=== PATIENT | male | born 1975 | race Caucasian/White ===

== ENCOUNTER 2018-07-10 05:56 | Inpatient (IN) | payer SELFPAY ==
[2018-07-10] MEDS ORDERED: Sodium Chloride 0.9% 10 ML Syringe FLUSH PRN (06:14)
[2018-07-10] MEDS ORDERED: Ondansetron 4 MG/2 ML SDV IVPUSH ONE (06:14)
[2018-07-10] MEDS ORDERED: LORazepam 2 MG/ML SDV IVPUSH ONE ×2 (06:14→07:00)
[2018-07-10] MEDS ORDERED: Sodium Chloride 0.9% 1,000 ML IV ONE ×5 (06:14→13:30)
[2018-07-10] MEDS ORDERED: HYDROmorphone 1 MG/ML Syringe IVPUSH ONE (06:14)
[2018-07-10] MEDS ORDERED: Sodium Chloride 0.9% 2.5 ML Syringe FLUSH PRN (06:14)
[2018-07-10] MEDS ORDERED: MVI, Adult with Vitamin K 10 ML, Thiamine 100 MG, Folic Acid 1 MG in Sodium Chloride 0.... IV ONE ×4 (06:15)
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
[2018-07-10] MEDS ORDERED: Pantoprazole 40 MG Vial IVPUSH ONE (06:16)
[2018-07-10] MEDS ORDERED: Sodium Chloride 0.9% 20 ML ONE (06:21)
[2018-07-10 06:35] LABS: CHLORIDE,CL 97 mmol/L (98-107); SODIUM,NA 136 mmol/L (136-148)
[2018-07-10] MEDS ORDERED: Iopamidol 755 Mg/ML 100 ML Bottle IVPUSH ONE (06:38)
--- NOTE | 2018-07-10 07:43 | CT ---
INDICATION: Abdominal pain. TECHNIQUE: CT scan of the abdomen and pelvis with 100 cc of Isovue-370 given intravenously. FINDINGS: The lung bases show trace dependent atelectasis. Diffuse fatty infiltration of the liver. More significant focal fatty infiltration in segment 5 and focal fatty sparing in segment 4. No other focal abnormalities identified in the visualized portions of the liver, spleen, left adrenal gland, and kidneys. No hydronephrosis. Minimal edema adjacent to the head of the pancreas. 2.8 cm peripherally calcified lesion abutting the distal portion of the body of the pancreas and 2.6 cm peripherally calcified lesion abutting the proximal portion of the body of the pancreas. The pancreas is otherwise unremarkable. 2.9 cm right adrenal nodule. The GI tract is incompletely distended but shows no gross abnormalities. The stomach and GE junction are not well assessed. Normal appendix. No retroperitoneal, pelvic sidewall, or mesenteric adenopathy. IMPRESSION: 1. Minimal edema adjacent to the head of the pancreas may represent acute pancreatitis. 2. Two peripherally calcified lesions abutting the body of the pancreas may represent old pancreatic pseudocysts. 3. 2.9 cm right adrenal nodule. Recommend adrenal CT scan on a routine basis. Dictated by Chris Armstrong MD @ 07/10/2018 7:40:52 AM Dictated by: Chris Armstrong MD @ 07/10/2018 07:41:01 (Electronically Signed)
[2018-07-10] MEDS ORDERED: Folic Acid 50 MG/10 ML MDV SUBCUT SCH ×2 (09:00→12:00)
[2018-07-10] MEDS ORDERED: Thiamine 200 MG/2 ML MDV IV SCH ×2 (11:15→12:00)
--- NOTE | 2018-07-10 11:43 | PCM.HP ---
H&P History of Present Illness - General Date of Service: 07/10/18 Admit Problem/Dx: Admission Diagnosis/Problem Admission Diagnosis/Problem Alcohol withdrawal syndrome - History of Present Illness Initial Comments - Free Text/Narative: Holland Kowalski is a 42 y/o male with history of pancreatitis and polysubstance abuse who presented to the ED complaining of abdominal pain mostly in the epigastric region. Rated 10/10 and down to 6/10 with pain medication. Worse with eating and direct pressure to abdomen. Endorsing poor oral intake due to nausea and abdominal pain. Patient has been drinking daily 3-6 beers daily. States he took methamphetamine about 2-3 days ago. Denies any IV drug use. No diarrhea or dysuria. Denies any alcohol withdrawal seizures. Last alcohol intake was yesterday. epigastric Pain Score (Numeric/FACES): 8 - Related Data Allergies/Adverse Reactions: Allergies Allergy/AdvReac Type Severity Reaction Status Date / Time No Known Allergies Allergy Verified 07/10/18 06:00 Home Medications: Home Meds . [No Known Home Meds] 07/10/18 [History] Past Medical History HEENT History: Reports: Impaired Vision, Other (See Below) Other HEENT History: wears glasses. [place] at [place] ear Gastrointestinal History: Reports: Pancreatitis - Infectious Disease History Infectious Disease History: Reports: Chicken Pox - Past Surgical History Musculoskeletal Surgical History: Reports: Shoulder Surgery, Other (See Below) Other Musculoskeletal Surgeries/Procedures:: pins @ Rt shoulder Dermatological Surgical History: Reports: Skin Graft Social & Family History - Family History Family Medical History: Noncontributory - Tobacco Use Smoking Status *Q: Current Every Day Smoker Years of Tobacco use: 20 Packs/Tins Daily: 7 Second Hand Smoke Exposure: Yes - Caffeine Use Caffeine Use: Reports: Coffee, Soda, Tea - Alcohol Use Days Per Week of Alcohol Use: 3 Number of Drinks Per Day: 12 Total Drinks Per Week: 36 Date of Last Drink: 07/09/18 - Recreational Drug Use Recreational Drug Use: Yes Drug Use in Last 12 Months: Yes Recreational Drug Type: Reports: Marijuana/Hashish, Methamphetamine Recreational Drug Use Frequency: Socially H&P Review of Systems - Review of Systems: Review Of Systems: ROS reveals no pertinent complaints other than HPI. Exam - Exam Exam: See Below - Vital Signs Vital Signs: Last Vital Signs Temp 37.0 C 07/10/18 08:10 Pulse 116 H 07/10/18 08:10 Resp 18 07/10/18 08:10 BP 164/97 H 07/10/18 08:10 Pulse Ox 98 07/10/18 08:10 Weight: 109.344 kg - Exam General: Alert, Oriented, Cooperative, Mild Distress HEENT: Conjunctiva Clear, Pupils Equal, Pupils Reactive Lungs: No: Crackles, Wheezing Cardiovascular: Regular Rhythm, Tachycardia. No: Systolic Murmur, Diastolic Murmur GI/Abdominal Exam: Soft, No Distention. No: Rebound Back Exam: Normal Inspection Extremities: Normal Inspection, No Pedal Edema Skin: Warm, Dry Neuro Extensive - Mental Status: Alert, Oriented x3 - Patient Data Lab Results Last 24 hrs: Laboratory Results - last 24 hr 07/10/18 07/10/18 07/10/18 Range/Units 06:12 06:12 06:12 WBC 10.10 (4.0-11.0) K/uL RBC 5.25 (4.50-5.90) M/uL Hgb 16.5 (13.0-17.0) g/dL Hct 47.9 (38.0-50.0) % MCV 91.2 (80.0-98.0) fL MCH 31.4 (27.0-32.0) pg MCHC 34.4 (31.0-37.0) g/dL RDW Std Deviation 42.8 (28.0-62.0) fl RDW Coeff of Barbara 13 (11.0-15.0) % Plt Count 127 L (150-400) K/uL MPV 9.70 (7.40-12.00) fL Neut % (Auto) 75.1 (48.0-80.0) % Lymph % (Auto) 14.9 L (16.0-40.0) % Garza % (Auto) 9.0 (0.0-15.0) % Eos % (Auto) 0.7 (0.0-7.0) % Baso % (Auto) 0.3 (0.0-1.5) % Neut # (Auto) 7.6 H (1.4-5.7) K/uL Lymph # (Auto) 1.5 (0.6-2.4) K/uL Garza # (Auto) 0.9 H (0.0-0.8) K/uL Eos # (Auto) 0.1 (0.0-0.7) K/uL Baso # (Auto) 0.0 (0.0-0.1) K/uL Nucleated RBC % 0.0 /100WBC Nucleated RBCs # 0 K/uL INR 1.10 Sodium 136 (136-148) mmol/L Potassium 3.3 L (3.5-5.1) mmol/L Chloride 97 L (98-107) mmol/L Carbon Dioxide 24.3 (21.0-32.0) mmol/L BUN 16 (7.0-18.0) mg/dL Creatinine 0.9 (0.8-1.3) mg/dL Est Cr Clr Drug Dosing 130.40 mL/min Estimated GFR (MDRD) > 60.0 ml/min Glucose 129 H (74-106) mg/dL Calcium 9.8 (8.5-10.1) mg/dL Magnesium 1.6 L (1.8-2.4) mg/dL Total Bilirubin 2.3 H (0.2-1.0) mg/dL AST 73 H (15-37) IU/L ALT 68 H (14-63) IU/L Alkaline Phosphatase 87 (46-116) U/L Total Protein 8.3 H (6.4-8.2) g/dL Albumin 4.6 (3.4-5.0) g/dL Globulin 3.7 (2.6-4.0) g/dL Albumin/Globulin Ratio 1.2 (0.9-1.6) Triglycerides (0-200) mg/dL Cholesterol (50-200) mg/dL LDL Cholesterol, Calc (60-180) mg/dL VLDL Cholesterol (5-55) mg/dL HDL Cholesterol (40-60) mg/dL Cholesterol/HDL Ratio (3.3-6.0) Amylase 69 (25-115) U/L Lipase 284 (73-393) U/L Ethyl Alcohol <3 mg/dL H. pylori IgG Antibody (NEG) 07/10/18 07/10/18 Range/Units 06:12 06:12 WBC (4.0-11.0) K/uL RBC (4.50-5.90) M/uL Hgb (13.0-17.0) g/dL Hct (38.0-50.0) % MCV (80.0-98.0) fL MCH (27.0-32.0) pg MCHC (31.0-37.0) g/dL RDW Std Deviation (28.0-62.0) fl RDW Coeff of Barbara (11.0-15.0) % Plt Count (150-400) K/uL MPV (7.40-12.00) fL Neut % (Auto) (48.0-80.0) % Lymph % (Auto) (16.0-40.0) % Garza % (Auto) (0.0-15.0) % Eos % (Auto) (0.0-7.0) % Baso % (Auto) (0.0-1.5) % Neut # (Auto) (1.4-5.7) K/uL Lymph # (Auto) (0.6-2.4) K/uL Garza # (Auto) (0.0-0.8) K/uL Eos # (Auto) (0.0-0.7) K/uL Baso # (Auto) (0.0-0.1) K/uL Nucleated RBC % /100WBC Nucleated RBCs # K/uL INR Sodium (136-148) mmol/L Potassium (3.5-5.1) mmol/L Chloride (98-107) mmol/L Carbon Dioxide (21.0-32.0) mmol/L BUN (7.0-18.0) mg/dL Creatinine (0.8-1.3) mg/dL Est Cr Clr Drug Dosing mL/min Estimated GFR (MDRD) ml/min Glucose (74-106) mg/dL Calcium (8.5-10.1) mg/dL Magnesium (1.8-2.4) mg/dL Total Bilirubin (0.2-1.0) mg/dL AST (15-37) IU/L ALT (14-63) IU/L Alkaline Phosphatase (46-116) U/L Total Protein (6.4-8.2) g/dL Albumin (3.4-5.0) g/dL Globulin (2.6-4.0) g/dL Albumin/Globulin Ratio (0.9-1.6) Triglycerides 82 (0-200) mg/dL Cholesterol 180 (50-200) mg/dL LDL Cholesterol, Calc 89 (60-180) mg/dL VLDL Cholesterol 16 (5-55) mg/dL HDL Cholesterol 75 H (40-60) mg/dL Cholesterol/HDL Ratio 2.4 L (3.3-6.0) Amylase (25-115) U/L Lipase (73-393) U/L Ethyl Alcohol mg/dL H. pylori IgG Antibody NEGATIVE (NEG) Result Diagrams: 07/10/18 06:12 07/10/18 06:12 Problem List Initiated/Reviewed/Updated: Yes Orders Last 24hrs: Active Orders 24 hr Category Date Time Status Patient Status [ADT] Stat ADT 07/10/18 07:00 Active Antiembolic Devices [RC] PER UNIT ROUTINE Care 07/10/18 11:16 Active EKG Documentation Completion [RC] STAT Care 07/10/18 06:13 Active Oxygen Therapy, ED [RC] ASDIRECTED Care 07/10/18 06:13 Active Pulse Oximetry [RC] ASDIRECTED Care 07/10/18 06:13 Active Telemetry Monitoring [Cardiac Monitoring] [RC] . Care 07/10/18 07:44 Active DIRECTED Abdomen Ltd [US] Routine Exams 07/10/18 11:11 Ordered CBC WITH AUTO DIFF [HEME] AM Lab 07/11/18 05:11 Ordered COMPREHENSIVE METABOLIC PN,CMP [CHEM] AM Lab 07/11/18 05:11 Ordered DRUG SCREEN, URINE [URCHEM] Stat Lab 07/10/18 06:39 Ordered UA RFX ANABEL AND CULT IF INDIC [URIN] Stat Lab 07/10/18 06:13 Ordered Folic Acid Med 07/10/18 09:00 Active 1 mg SUBCUT DAILY HYDROmorphone [Dilaudid] Med 07/10/18 11:10 Active 1 mg IVPUSH Q3H PRN LORazepam [Ativan] Med 07/10/18 11:06 Active See Protocol IVPUSH Q4H PRN MVI, Adult with Vitamin K [Infuvite Adult] 10 ml Med 07/10/18 06:15 Active Thiamine [Vitamin B-1] 100 mg Folic Acid 1 mg Sodium Chloride 0.9% [Normal Saline] 1,000 ml IV ONETIME Pantoprazole [ProTONIX IV] Med 07/11/18 09:00 Active 40 mg IV Q24H Sodium Chloride 0.9% [Normal Saline] 1,000 ml Med 07/10/18 11:06 Active IV .Bolus Sodium Chloride 0.9% [Normal Saline] 1,000 ml Med 07/10/18 11:10 Active IV .Bolus Sodium Chloride 0.9% [Normal Saline] 1,000 ml Med 07/10/18 11:15 Active IV ASDIRECTED Sodium Chloride 0.9% [Saline Flush] Med 07/10/18 06:14 Active 10 ml FLUSH ASDIRECTED PRN Sodium Chloride 0.9% [Saline Flush] Med 07/10/18 06:14 Active 2.5 ml FLUSH ASDIRECTED PRN Thiamine [Vitamin B-1] Med 07/10/18 11:15 Active 100 mg IV DAILY SCD [Sequential Compression Device] [OM.PC] Routine Oth 07/10/18 11:16 Ordered Saline Lock Insert [OM.PC] Stat Oth 07/10/18 06:13 Ordered Medication Orders Folic Acid (Folic Acid) 1 mg SUBCUT DAILY AMAN Hydromorphone HCl (Dilaudid) 1 mg IVPUSH Q3H PRN PRN Reason: Pain Multivitamins/Minerals 10 ml/Thiamine HCl 100 mg/ Folic Acid 1 mg/ Sodium Chloride 1,011.2 mls @ 150 mls/hr IV ONETIME ONE Stop: 07/10/18 12:59 Last Admin: 07/10/18 06:35 Dose: 150 mls/hr Sodium Chloride (Normal Saline) 1,000 mls @ 999 mls/hr IV .Bolus ONE Stop: 07/10/18 12:06 Sodium Chloride (Normal Saline) 1,000 mls @ 999 mls/hr IV .Bolus ONE Stop: 07/10/18 12:10 Sodium Chloride (Normal Saline) 1,000 mls @ 200 mls/hr IV ASDIRECTED AMAN Lorazepam (Ativan) 0 mg IVPUSH Q4H PRN; Protocol PRN Reason: aggitation Pantoprazole Sodium (Protonix Iv) 40 mg IV Q24H AMAN Sodium Chloride (Saline Flush) 10 ml FLUSH ASDIRECTED PRN PRN Reason: Keep Vein Open Sodium Chloride (Saline Flush) 2.5 ml FLUSH ASDIRECTED PRN PRN Reason: Keep Vein Open Thiamine HCl (Vitamin B-1) 100 mg IV DAILY AMAN Assessment/Plan Comment:: A: 1. Acute pancreatitis 2. Alcohol withdrawal 3. Polysubstance abuse 4. Hypomagnesemia 5. Hypokalemia 6. Hypertension 7. Hyperbilirubinemia P: 1. Acute pancreatitis. Will be NPO for bowel rest. Continue IV fluids. Zofran for nausea. Dilaudid PRN for abdominal pain. 2. Alcohol withdrawal- [place] protocol, lorazepam PRN. 3. Hypomagnesemia- replace with MgS 2 g IV once. Recheck tomorrow. 4. Hypokalemia- monitor for now. Recheck tomorrow. 5. Hypertension- monitor for now. If not improving, will start BP med. 6. Hyperbilirubinemia- continue to monitor. Likely 2/2 nausea, vomiting. f/u RUQ ultrasound. dispo: 1-2 days
[2018-07-10] MEDS: HYDROmorphone 1 MG/ML Syringe IVPUSH PRN ×3 (12:27→21:54)
[2018-07-10] MEDS ORDERED: Magnesium Sulfate/Water 2 GM in Premix Bag 1 BAG IV ONE (13:12)
--- NOTE | 2018-07-10 13:49 | US ---
INDICATION: Pancreatitis TECHNIQUE: Ultrasound abdomen limited. Sonographic images of the right upper quadrant were obtained using watts-scale and color Doppler images. COMPARISON: CT of the abdomen and pelvis 07/10/2018 FINDINGS: Liver: Diffusely echogenic consistent with fatty infiltrate. No masses. No intrahepatic biliary dilatation. Gallbladder: No stones or sludge. Normal wall thickness. No pericholecystic fluid. Common bile duct: 5 mm. Pancreas: Not well visualized due to overlying bowel gas. See report of CT the same day. Right kidney: 10.5 cm. Normal echotexture and cortex. No masses, stones, or hydronephrosis. IMPRESSION: Echogenic liver consistent with fatty infiltration. No gallstones or sludge Pancreas not well visualized Dictated by Rico Valencia MD @ Jul 10 2018 1:43PM Signed by Dr. Rico Valencia @ Jul 10 2018 1:47PM
[2018-07-10] MEDS: Sodium Chloride 0.9% 1,000 ML IV SCH ×2 (15:41→23:10)
[2018-07-10] MEDS ORDERED: Nicotine 14 MG/24 Hr Patch TRDERM SCH (15:45)
[2018-07-10] MEDS: LORazepam 2 MG/ML SDV IVPUSH PRN ×2 (16:32→23:11)
[2018-07-11] MEDS: LORazepam 2 MG/ML SDV IVPUSH PRN ×3 (00:19→05:34)
[2018-07-11] MEDS: Sodium Chloride 0.9% 1,000 ML IV SCH (05:26)
[2018-07-11 06:13] LABS: CHLORIDE,CL 102 mmol/L (98-107); SODIUM,NA 136 mmol/L (136-148)
[2018-07-11] MEDS ORDERED: Pantoprazole 40 MG Vial IV SCH (09:00)
[2018-07-11] MEDS ORDERED: Pantoprazole 40 MG in Sodium Chloride 0.9% 100 ML IVPUSH SCH (09:00)
== END 2018-07-11 06:15 | disposition left against medical advice (07) | DRG 439 ==
LOC: MW.ED 05:56 → MW.MS 07:00
PROVIDERS: ADMIT Internal Medicine; ATTEND Internal Medicine
PROC: HZ2ZZZZ Detoxification Services for Substance Abuse Treatment (ICD-10-PCS; principal; 2018-07-10)
DX: K85.90 Acute pancreatitis without necrosis or infection, unspecified (principal); F10.230 Alcohol dependence with withdrawal, uncomplicated; H54.7 Unspecified visual loss; F17.210 Nicotine dependence, cigarettes, uncomplicated; E83.42 Hypomagnesemia; I10 Essential (primary) hypertension; E87.6 Hypokalemia; E80.6 Other disorders of bilirubin metabolism; F19.10 Other psychoactive substance abuse, uncomplicated
CPT/HCPCS: 36415; 74177; 74177-26; 76705; 76705-26; 80053; 80061; 80305-QW; 81001; 82150; 83690; 83735; 85025; 85610; 86677; 93005; 96365; 96375; 96376; 99285-25; A4217; A9270-GY; C9113; G0480; J1170; J2060; J2405; J3411; J3475; J7040; Q9967

== ENCOUNTER 2018-07-12 08:22 | Observation (INO) | payer OTHER ==
[2018-07-12] MEDS ORDERED: Pantoprazole 40 MG Vial IVPUSH ONE (08:28)
[2018-07-12] MEDS ORDERED: Ondansetron 4 MG/2 ML SDV IVPUSH ONE (08:28)
[2018-07-12] MEDS ORDERED: Sodium Chloride 0.9% 1,000 ML IV ONE (08:28)
--- NOTE | 2018-07-12 08:45 | EDM.PDOC ---
ED HPI GENERAL MEDICAL PROBLEM - General Stated Complaint: stomach pain Time Seen by Provider: 07/12/18 08:44 Source of Information: Reports: Patient - History of Present Illness INITIAL COMMENTS - FREE TEXT/NARRATIVE: HISTORY AND PHYSICAL: History of present illness: [Patient with history of pancreatitis left the hospital on his own yesterday presents again today with 8 out of 10 epigastric pain no fever vomiting chills sweats Somewhat anxious 72 hours FROM his last drink ] Review of systems: As per history of present illness and below otherwise all systems reviewed and negative. Past medical history: As per history of present illness and as reviewed below otherwise noncontributory. Surgical history: As per history of present illness and as reviewed below otherwise noncontributory. Social history: No reported history of drug or alcohol abuse. Family history: As per history of present illness and as reviewed below otherwise noncontributory. Physical exam: HEENT: Atraumatic, normocephalic, pupils reactive, negative for conjunctival pallor or scleral icterus, mucous membranes moist, throat clear, neck supple, nontender, trachea midline. Lungs: Clear to auscultation, breath sounds equal bilaterally, chest nontender. Heart: S1S2, regular, negative for clicks, rubs, or JVD. Abdomen: Soft, nondistended, nontender. Negative for masses or hepatosplenomegaly. Negative for costovertebral tenderness. Pelvis: Stable nontender. Genitourinary: Deferred. Rectal: Deferred. Extremities: Atraumatic, negative for cords or calf pain. Neurovascular unremarkable. Neuro: Awake, alert, oriented. Cranial nerves II through XII unremarkable. Cerebellum unremarkable. Motor and sensory unremarkable throughout. Exam nonfocal. Diagnostics: [CBC CMP troponin lipase UA EKG ] Therapeutics: [Normal saline Proton X Zofran ] Impression: [Abdominal pain] Pancreatitis Definitive disposition and diagnosis as appropriate pending reevaluation and review of above. Left Lower Abdomen Pain Score (Numeric/FACES): 10 - Related Data Allergies Allergy/AdvReac Type Severity Reaction Status Date / Time No Known Allergies Allergy Verified 07/12/18 08:44 Home Meds: Home Meds . [No Known Home Meds] 07/10/18 [History] Past Medical History HEENT History: Reports: Impaired Vision, Other (See Below) Other HEENT History: wears glasses. [place] at [place] ear Gastrointestinal History: Reports: Pancreatitis - Infectious Disease History Infectious Disease History: Reports: Chicken Pox - Past Surgical History Musculoskeletal Surgical History: Reports: Shoulder Surgery, Other (See Below) Other Musculoskeletal Surgeries/Procedures:: pins @ Rt shoulder Dermatological Surgical History: Reports: Skin Graft Social & Family History - Family History Family Medical History: Noncontributory - Caffeine Use Caffeine Use: Reports: Coffee, Soda, Tea ED ROS GENERAL - Review of Systems Review Of Systems: See Below ED EXAM, GENERAL - Physical Exam Exam: See Below Course - Vital Signs Last Recorded V/S: Last Vital Signs Temp 96.8 F 07/12/18 08:39 Pulse 97 07/12/18 08:39 Resp 20 07/12/18 08:39 BP 132/88 07/12/18 08:39 Pulse Ox 97 07/12/18 08:39 - Orders/Labs/Meds Orders: Active Orders 24 hr Category Date Time Status EKG Documentation Completion [RC] STAT Care 07/12/18 08:45 Active Sodium Chloride 0.9% [Normal Saline] 1,000 ml Med 07/12/18 10:45 Active IV STAT Medication Orders Sodium Chloride (Normal Saline) 1,000 mls @ 125 mls/hr IV STAT AMAN Last Admin: 07/12/18 10:50 Dose: 125 mls/hr Labs: Laboratory Tests 07/12/18 07/12/18 07/12/18 Range/Units 08:48 08:48 09:01 WBC 6.57 (4.0-11.0) K/uL RBC 4.88 (4.50-5.90) M/uL Hgb 15.6 (13.0-17.0) g/dL Hct 46.2 (38.0-50.0) % MCV 94.7 (80.0-98.0) fL MCH 32.0 (27.0-32.0) pg MCHC 33.8 (31.0-37.0) g/dL RDW Std Deviation 44.1 (28.0-62.0) fl RDW Coeff of Barbara 13 (11.0-15.0) % Plt Count 110 L (150-400) K/uL MPV 10.60 (7.40-12.00) fL Neut % (Auto) 69.4 (48.0-80.0) % Lymph % (Auto) 16.9 (16.0-40.0) % [place] % (Auto) 8.5 (0.0-15.0) % Eos % (Auto) 5.0 (0.0-7.0) % Baso % (Auto) 0.2 (0.0-1.5) % Neut # (Auto) 4.6 (1.4-5.7) K/uL Lymph # (Auto) 1.1 (0.6-2.4) K/uL [place] # (Auto) 0.6 (0.0-0.8) K/uL Eos # (Auto) 0.3 (0.0-0.7) K/uL Baso # (Auto) 0.0 (0.0-0.1) K/uL Nucleated RBC % 0.0 /100WBC Nucleated RBCs # 0 K/uL Sodium 138 (136-148) mmol/L Potassium 3.7 (3.5-5.1) mmol/L Chloride 104 (98-107) mmol/L Carbon Dioxide 23.3 (21.0-32.0) mmol/L BUN 15 (7.0-18.0) mg/dL Creatinine 0.8 (0.8-1.3) mg/dL Est Cr Clr Drug Dosing 146.70 mL/min Estimated GFR (MDRD) > 60.0 ml/min Glucose 113 H (74-106) mg/dL Calcium 8.9 (8.5-10.1) mg/dL Total Bilirubin 1.0 (0.2-1.0) mg/dL AST 54 H (15-37) IU/L ALT 57 (14-63) IU/L Alkaline Phosphatase 82 (46-116) U/L Troponin I < 0.050 (0.000-0.056) ng/mL Total Protein 7.7 (6.4-8.2) g/dL Albumin 3.9 (3.4-5.0) g/dL Globulin 3.8 (2.6-4.0) g/dL Albumin/Globulin Ratio 1.0 (0.9-1.6) Lipase 679 H (73-393) U/L Urine Color DARK YELLOW Urine Appearance SLT CLOUDY Urine pH 5.5 (5.0-8.0) Ur Specific [place] 1.025 (1.001-1.035) Urine Protein NEGATIVE (NEGATIVE) mg/dL Urine Glucose (UA) NEGATIVE (NEGATIVE) mg/dL Urine Ketones NEGATIVE (NEGATIVE) mg/dL Urine Occult Blood NEGATIVE (NEGATIVE) Urine Nitrite NEGATIVE (NEGATIVE) Urine Bilirubin SMALL H (NEGATIVE) Urine Ictotest NEGATIVE Urine Urobilinogen 0.2 (<2.0) EU/dL Ur Leukocyte Esterase NEGATIVE (NEGATIVE) Meds: Medications Generic Name Dose Route Start Last Admin Trade Name Freq PRN Reason Stop Dose Admin Sodium Chloride 1,000 mls @ 125 mls/hr 07/12/18 10:45 07/12/18 10:50 Normal Saline IV 125 mls/hr STAT AMAN Administration Discontinued Medications Generic Name Dose Route Start Last Admin Trade Name Freq PRN Reason Stop Dose Admin Hydromorphone HCl 1 mg 07/12/18 10:40 07/12/18 10:52 Dilaudid IVPUSH 07/12/18 10:41 Not Given ONETIME ONE Hydromorphone HCl Confirm 07/12/18 10:47 07/12/18 10:58 Dilaudid Administered 07/12/18 10:48 Not Given Dose 1 mg .ROUTE .STK-MED ONE Hydromorphone HCl 1 mg 07/12/18 10:51 07/12/18 10:53 Dilaudid IVPUSH 07/12/18 10:52 1 mg ONETIME ONE Administration Sodium Chloride 1,000 mls @ 999 mls/hr 07/12/18 08:28 07/12/18 08:57 Normal Saline IV 07/12/18 09:28 999 mls/hr STAT ONE Administration Sodium Chloride Confirm 07/12/18 08:52 Normal Saline Administered 07/12/18 08:53 Dose 20 mls @ as directed .ROUTE .STK-MED ONE Lorazepam 2 mg 07/12/18 12:50 Ativan IVPUSH 07/12/18 12:51 ONETIME ONE Morphine Sulfate 4 mg 07/12/18 09:01 07/12/18 09:15 Morphine IVPUSH 07/12/18 09:02 4 mg ONETIME ONE Administration Ondansetron HCl 8 mg 07/12/18 08:28 07/12/18 09:06 Zofran IVPUSH 07/12/18 08:29 8 mg ONETIME ONE Administration Pantoprazole Sodium 80 mg 07/12/18 08:28 07/12/18 09:09 Protonix Iv IVPUSH 07/12/18 08:29 80 mg .BOLUS ONE Administration Departure - Departure Time of Disposition: 12:53 Disposition: Refer to Observation Condition: Fair Clinical Impression: Pancreatitis - Discharge Information Referrals: PCP,None [Primary Care Provider] - - My Orders Last 24 Hours: My Active Orders 07/12/18 08:45 EKG Documentation Completion [RC] STAT 07/12/18 10:45 Sodium Chloride 0.9% [Normal Saline] 1,000 ml IV STAT - Assessment/Plan Last 24 Hours: My Active Orders 07/12/18 08:45 EKG Documentation Completion [RC] STAT 07/12/18 10:45 Sodium Chloride 0.9% [Normal Saline] 1,000 ml IV STAT
[2018-07-12] MEDS ORDERED: Sodium Chloride 0.9% 20 ML ONE (08:52)
[2018-07-12] MEDS ORDERED: Morphine 4 MG/ML Syringe IVPUSH ONE (09:01)
[2018-07-12 09:27] LABS: CHLORIDE,CL 104 mmol/L (98-107); SODIUM,NA 138 mmol/L (136-148)
[2018-07-12] MEDS ORDERED: HYDROmorphone 2 MG/ML SDV IVPUSH ONE (10:40)
[2018-07-12] MEDS ORDERED: Sodium Chloride 0.9% 1,000 ML IV SCH ×2 (10:45→13:30)
[2018-07-12] MEDS ORDERED: HYDROmorphone 1 MG/ML Syringe ONE (10:47)
[2018-07-12] MEDS ORDERED: HYDROmorphone 1 MG/ML Syringe IVPUSH ONE (10:51)
[2018-07-12] MEDS ORDERED: LORazepam 2 MG/ML SDV IVPUSH ONE (12:50)
[2018-07-12] MEDS ORDERED: Morphine 10 MG/ML Syringe IVPUSH PRN (13:26)
[2018-07-12] MEDS ORDERED: Ondansetron 4 MG/2 ML SDV IVPUSH PRN (13:26)
--- NOTE | 2018-07-12 13:40 | PCM.HP ---
H&P History of Present Illness - General Date of Service: 07/12/18 Admit Problem/Dx: Admission Diagnosis/Problem Admission Diagnosis/Problem Pancreatitis - History of Present Illness Initial Comments - Free Text/Narative: 42 y/o male with history of alcohol and polysubstance abuse. He was recently hospitalized, however, he left AMA. Now, he returns stating that he thought he was okay so he left AMA and went home. However, he states that he tried eating a burrito and it instantly vomited. Rates the abdominal pain as 8/10, better with pain medication. Denies drinking any alcohol while at home or taking any illicit drugs. States he has been getting more sweaty and tremulous. Denies any alcohol withdrawal seizures. No hematemesis or diarrhea. No chest pain, dyspnea. Lipase is elevated in the 600's. Left Lower Abdomen Pain Score (Numeric/FACES): 10 - Related Data Allergies/Adverse Reactions: Allergies Allergy/AdvReac Type Severity Reaction Status Date / Time No Known Allergies Allergy Verified 07/12/18 08:44 Home Medications: Home Meds . [No Known Home Meds] 07/10/18 [History] Past Medical History HEENT History: Reports: Impaired Vision, Other (See Below) Other HEENT History: wears glasses. [place] at [place] ear Gastrointestinal History: Reports: Pancreatitis - Infectious Disease History Infectious Disease History: Reports: Chicken Pox - Past Surgical History Musculoskeletal Surgical History: Reports: Shoulder Surgery, Other (See Below) Other Musculoskeletal Surgeries/Procedures:: pins @ Rt shoulder Dermatological Surgical History: Reports: Skin Graft Social & Family History - Family History Family Medical History: Noncontributory - Tobacco Use Smoking Status *Q: Current Every Day Smoker Years of Tobacco use: 20 Packs/Tins Daily: 0.4 - Caffeine Use Caffeine Use: Reports: Coffee, Soda, Tea - Alcohol Use Days Per Week of Alcohol Use: 5 Number of Drinks Per Day: 12 Total Drinks Per Week: 60 - Recreational Drug Use Recreational Drug Use: No H&P Review of Systems - Review of Systems: Review Of Systems: ROS reveals no pertinent complaints other than HPI. Exam - Exam Exam: See Below - Vital Signs Vital Signs: Last Vital Signs Temp 36.0 C 07/12/18 13:00 Pulse 89 07/12/18 13:00 Resp 20 07/12/18 13:00 BP 127/86 07/12/18 13:00 Pulse Ox 93 L 07/12/18 13:00 Weight: 108.862 kg - Exam General: Alert, Oriented, Cooperative HEENT: Conjunctiva Clear, Mucosa Moist & Pettus Lungs: Clear to Auscultation, Normal Respiratory Effort. No: Crackles Cardiovascular: Regular Rate, Regular Rhythm GI/Abdominal Exam: Other (hypoactive bowerl sounds, non distended. Tender in epigastric region. No rebound.) Extremities: Normal Inspection, No Pedal Edema Skin: Warm - Patient Data Lab Results Last 24 hrs: Laboratory Results - last 24 hr 07/12/18 07/12/18 07/12/18 Range/Units 08:48 08:48 09:01 WBC 6.57 (4.0-11.0) K/uL RBC 4.88 (4.50-5.90) M/uL Hgb 15.6 (13.0-17.0) g/dL Hct 46.2 (38.0-50.0) % MCV 94.7 (80.0-98.0) fL MCH 32.0 (27.0-32.0) pg MCHC 33.8 (31.0-37.0) g/dL RDW Std Deviation 44.1 (28.0-62.0) fl RDW Coeff of Barbara 13 (11.0-15.0) % Plt Count 110 L (150-400) K/uL MPV 10.60 (7.40-12.00) fL Neut % (Auto) 69.4 (48.0-80.0) % Lymph % (Auto) 16.9 (16.0-40.0) % [place] % (Auto) 8.5 (0.0-15.0) % Eos % (Auto) 5.0 (0.0-7.0) % Baso % (Auto) 0.2 (0.0-1.5) % Neut # (Auto) 4.6 (1.4-5.7) K/uL Lymph # (Auto) 1.1 (0.6-2.4) K/uL [place] # (Auto) 0.6 (0.0-0.8) K/uL Eos # (Auto) 0.3 (0.0-0.7) K/uL Baso # (Auto) 0.0 (0.0-0.1) K/uL Nucleated RBC % 0.0 /100WBC Nucleated RBCs # 0 K/uL Sodium 138 (136-148) mmol/L Potassium 3.7 (3.5-5.1) mmol/L Chloride 104 (98-107) mmol/L Carbon Dioxide 23.3 (21.0-32.0) mmol/L BUN 15 (7.0-18.0) mg/dL Creatinine 0.8 (0.8-1.3) mg/dL Est Cr Clr Drug Dosing 146.70 mL/min Estimated GFR (MDRD) > 60.0 ml/min Glucose 113 H (74-106) mg/dL Calcium 8.9 (8.5-10.1) mg/dL Total Bilirubin 1.0 (0.2-1.0) mg/dL AST 54 H (15-37) IU/L ALT 57 (14-63) IU/L Alkaline Phosphatase 82 (46-116) U/L Troponin I < 0.050 (0.000-0.056) ng/mL Total Protein 7.7 (6.4-8.2) g/dL Albumin 3.9 (3.4-5.0) g/dL Globulin 3.8 (2.6-4.0) g/dL Albumin/Globulin Ratio 1.0 (0.9-1.6) Lipase 679 H (73-393) U/L Urine Color DARK YELLOW Urine Appearance SLT CLOUDY Urine pH 5.5 (5.0-8.0) Ur Specific Ethel 1.025 (1.001-1.035) Urine Protein NEGATIVE (NEGATIVE) mg/dL Urine Glucose (UA) NEGATIVE (NEGATIVE) mg/dL Urine Ketones NEGATIVE (NEGATIVE) mg/dL Urine Occult Blood NEGATIVE (NEGATIVE) Urine Nitrite NEGATIVE (NEGATIVE) Urine Bilirubin SMALL H (NEGATIVE) Urine Ictotest NEGATIVE Urine Urobilinogen 0.2 (<2.0) EU/dL Ur Leukocyte Esterase NEGATIVE (NEGATIVE) Result Diagrams: 07/12/18 08:48 07/12/18 08:48 Problem List Initiated/Reviewed/Updated: Yes Orders Last 24hrs: Active Orders 24 hr Category Date Time Status Admission Status [Patient Status] [ADT] Stat ADT 07/12/18 12:53 Active EKG Documentation Completion [RC] STAT Care 07/12/18 08:45 Active Intake and Output [RC] QSHIFT Care 07/12/18 13:27 Ordered Oxygen Therapy [RC] PRN Care 07/12/18 13:26 Ordered Up ad Annita [RC] ASDIRECTED Care 07/12/18 13:26 Ordered VTE/DVT Education [RC] PER UNIT ROUTINE Care 07/12/18 13:26 Ordered Vital Signs [RC] Q4H Care 07/12/18 13:26 Ordered Nothing per Oral Now Diet [DIET] Diet 07/12/18 Dinner Ordered DRUG SCREEN, URINE [URCHEM] Routine Lab 07/12/18 13:33 Ordered Enoxaparin [Lovenox] Med 07/12/18 13:30 Ordered 40 mg SUBCUT Q24H LORazepam [Ativan] Med 07/12/18 13:31 Ordered See Protocol IVPUSH Q4H PRN Morphine Med 07/12/18 13:26 Ordered 2 mg IVPUSH Q2H PRN Nicotine [Habitrol] Med 07/12/18 13:30 Ordered 7 mg TRDERM DAILY Ondansetron [Zofran] Med 07/12/18 13:26 Ordered 4 mg IVPUSH Q6H PRN Sodium Chloride 0.9% [Normal Saline] 1,000 ml Med 07/12/18 13:30 Ordered IV ASDIRECTED Sodium Chloride 0.9% [Normal Saline] 1,000 ml Med 07/12/18 10:45 Active IV STAT Resuscitation Status Routine Resus Stat 07/12/18 13:26 Ordered Medication Orders Enoxaparin Sodium (Lovenox) 40 mg SUBCUT Q24H AMAN Sodium Chloride (Normal Saline) 1,000 mls @ 125 mls/hr IV STAT AMAN Last Admin: 07/12/18 10:50 Dose: 125 mls/hr Sodium Chloride (Normal Saline) 1,000 mls @ 200 mls/hr IV ASDIRECTED AMAN Lorazepam (Ativan) 0 mg IVPUSH Q4H PRN; Protocol PRN Reason: Withdrawal Symptoms Morphine Sulfate (Morphine) 2 mg IVPUSH Q2H PRN PRN Reason: Pain (severe 7-10) Stop: 07/13/18 13:28 Nicotine (Habitrol) 7 mg TRDERM DAILY AMAN Ondansetron HCl (Zofran) 4 mg IVPUSH Q6H PRN PRN Reason: Nausea/Vomiting Assessment/Plan Comment:: A: 1. Acute pancreatitis 2. Alcohol abuse 3. Polysubstance abuse P: 1. Admit as observation to medical floor. 2. Vitals, I/O's per floor routine. 3. Activity: ad annita 4. Diet: NPO 5. DVT prophylaxis: Lovenox 6. Code Status: FULL CODE 1. Acute pancreatitis- start NS IV at 200 mls/hr. NPO for now. Morphine 2 mg IV Q2H PRN for pain. 2. Alcohol abuse- ordered CIWA monitoring and Lorazepam IV PRN for CIWA>10. Dispo: 1-2 days
[2018-07-12] MEDS: Enoxaparin 40 MG/0.4 ML Syringe SUBCUT SCH (15:13)
[2018-07-12] MEDS: Nicotine 7 MG/24 Hr Patch TRDERM SCH (15:13)
[2018-07-12] MEDS: Morphine 2 MG/ML Syringe IVPUSH PRN ×3 (15:13→19:58)
[2018-07-12] MEDS: LORazepam 2 MG/ML SDV IVPUSH PRN ×2 (17:30→22:43)
[2018-07-12] MEDS: Ciprofloxacin/Dexamethasone 0.3-0.1% Otic Susp 7.5 ML Bottle EARLF SCH ×2 (20:18→20:24)
[2018-07-12] MEDS: Sodium Chloride 0.9% 1,000 ML IV SCH (22:43)
[2018-07-13] MEDS: Morphine 2 MG/ML Syringe IVPUSH PRN (03:45)
[2018-07-13] MEDS: Sodium Chloride 0.9% 1,000 ML IV SCH ×4 (03:47→19:19)
[2018-07-13 05:38] LABS: CHLORIDE,CL 105 mmol/L (98-107); SODIUM,NA 139 mmol/L (136-148)
[2018-07-13] MEDS: Nicotine 7 MG/24 Hr Patch TRDERM SCH (08:44)
[2018-07-13] MEDS: Ciprofloxacin/Dexamethasone 0.3-0.1% Otic Susp 7.5 ML Bottle EARLF SCH ×2 (08:45→20:36)
--- NOTE | 2018-07-13 12:28 | PCM.PN ---
- General Info Date of Service: 07/13/18 Subjective Update: No acute events overnight. Abdominal pain has improved. No nausea or vomiting. Denies chest pain, dyspnea. He would like to try PO diet. - Patient Data Vitals - Most Recent: Last Vital Signs Temp 36.4 C 07/13/18 11:35 Pulse 90 07/13/18 11:35 Resp 19 07/13/18 11:35 BP 142/86 H 07/13/18 11:35 Pulse Ox 95 07/13/18 11:35 Weight - Most Recent: 107.002 kg I&O - Last 24 Hours: Intake & Output 07/12/18 07/13/18 07/13/18 22:59 06:59 14:59 Intake Total 820 2135 954 Output Total 0 2500 Balance 820 -365 954 Lab Results Last 24 Hours: Laboratory Results - last 24 hr 07/12/18 07/12/18 07/13/18 Range/Units 08:48 09:01 04:55 Sodium 139 (136-148) mmol/L Potassium 4.2 (3.5-5.1) mmol/L Chloride 105 (98-107) mmol/L Carbon Dioxide 26.9 (21.0-32.0) mmol/L BUN 8 (7.0-18.0) mg/dL Creatinine 0.7 L (0.8-1.3) mg/dL Est Cr Clr Drug Dosing 167.66 mL/min Estimated GFR (MDRD) > 60.0 ml/min Glucose 92 (74-106) mg/dL Calcium 8.4 L (8.5-10.1) mg/dL Urine Opiates Screen NEGATIVE (NEGATIVE) Ur Oxycodone Screen NEGATIVE (NEGATIVE) Urine Methadone Screen NEGATIVE (NEGATIVE) Ur Barbiturates Screen NEGATIVE (NEGATIVE) Ur Phencyclidine Scrn NEGATIVE (NEGATIVE) Ur Amphetamine Screen NEGATIVE (NEGATIVE) U Methamphetamines Scrn NEGATIVE (NEGATIVE) U Benzodiazepines Scrn NEGATIVE (NEGATIVE) U Cocaine Metab Screen NEGATIVE (NEGATIVE) U Marijuana (THC) Screen NEGATIVE (NEGATIVE) Ethyl Alcohol < 3.0 mg/dL Med Orders - Current: Current Medications Ciprofloxacin/Dexamethasone (Ciprodex Otic Susp) 0 ml EARLF BID AMAN Stop: 07/19/18 18:01 Last Admin: 07/13/18 08:45 Dose: 4 drop Enoxaparin Sodium (Lovenox) 40 mg SUBCUT Q24H AMAN Last Admin: 07/12/18 15:13 Dose: 40 mg Sodium Chloride (Normal Saline) 1,000 mls @ 200 mls/hr IV ASDIRECTED AMAN Last Admin: 07/13/18 08:35 Dose: 200 mls/hr Lorazepam (Ativan) 0 mg IVPUSH Q4H PRN; Protocol PRN Reason: Withdrawal Symptoms Last Admin: 07/12/18 22:43 Dose: 1 mg Nicotine (Habitrol) 7 mg TRDERM DAILY AMAN Last Admin: 07/13/18 08:44 Dose: 7 mg Ondansetron HCl (Zofran) 4 mg IVPUSH Q6H PRN PRN Reason: Nausea/Vomiting Discontinued Medications Hydromorphone HCl (Dilaudid) 1 mg IVPUSH ONETIME ONE Stop: 07/12/18 10:41 Last Admin: 07/12/18 10:52 Dose: Not Given Hydromorphone HCl (Dilaudid) Confirm Administered Dose 1 mg .ROUTE .STK-MED ONE Stop: 07/12/18 10:48 Last Admin: 07/12/18 10:58 Dose: Not Given Hydromorphone HCl (Dilaudid) 1 mg IVPUSH ONETIME ONE Stop: 07/12/18 10:52 Last Admin: 07/12/18 10:53 Dose: 1 mg Sodium Chloride (Normal Saline) 1,000 mls @ 999 mls/hr IV STAT ONE Stop: 07/12/18 09:28 Last Admin: 07/12/18 08:57 Dose: 999 mls/hr Sodium Chloride (Normal Saline) Confirm Administered Dose 20 mls @ as directed .ROUTE .STK-MED ONE Stop: 07/12/18 08:53 Last Admin: 07/12/18 16:43 Dose: Not Given Sodium Chloride (Normal Saline) 1,000 mls @ 125 mls/hr IV STAT AMAN Last Admin: 07/12/18 10:50 Dose: 125 mls/hr Sodium Chloride (Normal Saline) 1,000 mls @ 200 mls/hr IV ASDIRECTED AMAN Lorazepam (Ativan) 2 mg IVPUSH ONETIME ONE Stop: 07/12/18 12:51 Last Admin: 07/12/18 12:55 Dose: 2 mg Morphine Sulfate (Morphine) 4 mg IVPUSH ONETIME ONE Stop: 07/12/18 09:02 Last Admin: 07/12/18 09:15 Dose: 4 mg Morphine Sulfate (Morphine) 2 mg IVPUSH Q2H PRN PRN Reason: Pain (severe 7-10) Stop: 07/13/18 13:28 Morphine Sulfate (Morphine) 2 mg IVPUSH Q2H PRN PRN Reason: Pain (severe 7-10) Stop: 07/13/18 13:28 Last Admin: 07/13/18 03:45 Dose: 2 mg Ondansetron HCl (Zofran) 8 mg IVPUSH ONETIME ONE Stop: 07/12/18 08:29 Last Admin: 07/12/18 09:06 Dose: 8 mg Pantoprazole Sodium (Protonix Iv) 80 mg IVPUSH .BOLUS ONE Stop: 07/12/18 08:29 Last Admin: 07/12/18 09:09 Dose: 80 mg - Exam General: Alert, Oriented, Cooperative, No Acute Distress Lungs: Clear to Auscultation, Normal Respiratory Effort Cardiovascular: Regular Rate, Regular Rhythm GI/Abdominal Exam: Other (soft, non distended, mildly tender in epigastric region. no rebound.) Extremities: No Pedal Edema Skin: Warm, Dry - Problem List Review Problem List Initiated/Reviewed/Updated: Yes - My Orders Last 24 Hours: My Active Orders 07/12/18 13:26 Oxygen Therapy [RC] PRN Up ad Annita [RC] ASDIRECTED VTE/DVT Education [RC] PER UNIT ROUTINE Vital Signs [RC] Q4H Ondansetron [Zofran] 4 mg IVPUSH Q6H PRN Resuscitation Status Routine 07/12/18 13:27 Intake and Output [RC] Q12H 07/12/18 13:30 Enoxaparin [Lovenox] 40 mg SUBCUT Q24H Nicotine [Habitrol] 7 mg TRDERM DAILY 07/12/18 13:31 LORazepam [Ativan] See Protocol IVPUSH Q4H PRN 07/12/18 18:00 Ciprofloxacin/Dexamethasone [Ciprodex Otic Susp] See Dose Instructions EARLF BID - Plan Plan:: A: 1. Acute pancreatitis 2. Alcohol abuse 3. Polysubstance abuse P: 1. Acute pancreatitis- Advance to clear liquids. Continue with IV fluids for now. 2. Alcohol abuse, no signs of withdrawal. Continue CIWA for now. Dispo: will likely be ready for DC tomorrow if tolerating PO.
[2018-07-13] MEDS: Enoxaparin 40 MG/0.4 ML Syringe SUBCUT SCH (13:21)
[2018-07-13] MEDS ORDERED: oxyCODONE 5 MG Tab PO PRN (16:41)
[2018-07-14] MEDS: Sodium Chloride 0.9% 1,000 ML IV SCH ×2 (00:26→05:26)
[2018-07-14 05:54] LABS: CHLORIDE,CL 108 mmol/L (98-107); SODIUM,NA 141 mmol/L (136-148)
[2018-07-14] MEDS: Nicotine 7 MG/24 Hr Patch TRDERM SCH (09:55)
[2018-07-14] MEDS: Ciprofloxacin/Dexamethasone 0.3-0.1% Otic Susp 7.5 ML Bottle EARLF SCH (09:56)
--- NOTE | 2018-07-14 12:14 | PCM.DCSUM1 ---
<Barney Bishop - Last Filed: 07/14/18 12:31> Discharge Summary - Hospital Course Free Text/Narrative:: Holland Kowalski is a 42 y/o male with history of alcohol and polysubstance abuse who presented to the ER with worsening abdominal pain. He was admitted for acute pancreatitis. He was hydrated aggressively and pain controlled. Additionally, CIWA protocol was implemented and he did not show signs of withdrawal. He was able to tolerate clear liquid diet on his second day of hospitalization and his abdominal pain had resolved. No nausea or vomiting. He was advised to abstain from alcohol and any mind altering substances. In addition, advised him to slowly advance his diet. - Discharge Data Discharge Date: 07/14/18 Discharge Disposition: Home, Self-Care 01 Condition: Good - Patient Instructions Diet: Usual Diet as Tolerated Diet, Other: start with a soft diet and then advance as tolerated Notify Provider of: Fever, Increased Pain, Swelling and Redness, Nausea and/or Vomiting - Discharge Plan *PRESCRIPTION DRUG MONITORING PROGRAM REVIEWED*: Not Applicable *COPY OF PRESCRIPTION DRUG MONITORING REPORT IN PATIENT CHERI: Not Applicable Prescriptions/Med Rec: Ondansetron [Zofran ODT] 4 mg PO Q6H PRN #15 tab.dis PRN Reason: Nausea Home Medications: Home Meds Ondansetron [Zofran ODT] 4 mg PO Q6H PRN #15 tab.dis 07/14/18 [Rx] Patient Handouts: Ondansetron tablets, Acute Pancreatitis, [id number] Referrals: Barney Bishop MD [Resident] - 07/27/18 2:00 pm - Discharge Summary/Plan Comment DC Time >30 min.: No - Patient Data Vitals - Most Recent: Last Vital Signs Temp 37.1 C 07/14/18 07:00 Pulse 71 07/14/18 03:00 Resp 18 07/14/18 07:00 BP 142/92 H 07/14/18 07:00 Pulse Ox 96 07/14/18 07:00 Weight - Most Recent: 107.002 kg I&O - Last 24 hours: Intake & Output 07/13/18 07/14/18 07/14/18 22:59 06:59 14:59 Intake Total 2119 4323 1121 Output Total 1870 2700 Balance 249 1623 1121 Lab Results - Last 24 hrs: Laboratory Results - last 24 hr 07/14/18 Range/Units 04:53 Sodium 141 (136-148) mmol/L Potassium 3.8 (3.5-5.1) mmol/L Chloride 108 H (98-107) mmol/L Carbon Dioxide 26.2 (21.0-32.0) mmol/L BUN 8 (7.0-18.0) mg/dL Creatinine 0.7 L (0.8-1.3) mg/dL Est Cr Clr Drug Dosing 167.66 mL/min Estimated GFR (MDRD) > 60.0 ml/min Glucose 99 (74-106) mg/dL Calcium 8.5 (8.5-10.1) mg/dL Med Orders - Current: Current Medications Ciprofloxacin/Dexamethasone (Ciprodex Otic Susp) 0 ml EARLF BID [facility] Stop: 07/19/18 18:01 Last Admin: 07/14/18 09:56 Dose: 4 drop Enoxaparin Sodium (Lovenox) 40 mg SUBCUT Q24H [facility] Last Admin: 07/13/18 13:21 Dose: 40 mg Sodium Chloride (Normal Saline) 1,000 mls @ 200 mls/hr IV ASDIRECTED [facility] Last Admin: 07/14/18 05:26 Dose: 200 mls/hr Lorazepam (Ativan) 0 mg IVPUSH Q4H PRN; Protocol PRN Reason: Withdrawal Symptoms Last Admin: 07/12/18 22:43 Dose: 1 mg Nicotine (Habitrol) 7 mg TRDERM DAILY [facility] Last Admin: 07/14/18 09:55 Dose: 7 mg Ondansetron HCl (Zofran) 4 mg IVPUSH Q6H PRN PRN Reason: Nausea/Vomiting Oxycodone HCl (Oxycodone) 5 mg PO Q6H PRN PRN Reason: Pain Discontinued Medications Hydromorphone HCl (Dilaudid) 1 mg IVPUSH ONETIME ONE Stop: 07/12/18 10:41 Last Admin: 07/12/18 10:52 Dose: Not Given Hydromorphone HCl (Dilaudid) Confirm Administered Dose 1 mg .ROUTE .STK-MED ONE Stop: 07/12/18 10:48 Last Admin: 07/12/18 10:58 Dose: Not Given Hydromorphone HCl (Dilaudid) 1 mg IVPUSH ONETIME ONE Stop: 07/12/18 10:52 Last Admin: 07/12/18 10:53 Dose: 1 mg Sodium Chloride (Normal Saline) 1,000 mls @ 999 mls/hr IV STAT ONE Stop: 07/12/18 09:28 Last Admin: 07/12/18 08:57 Dose: 999 mls/hr Sodium Chloride (Normal Saline) Confirm Administered Dose 20 mls @ as directed .ROUTE .STK-MED ONE Stop: 07/12/18 08:53 Last Admin: 07/12/18 16:43 Dose: Not Given Sodium Chloride (Normal Saline) 1,000 mls @ 125 mls/hr IV STAT AMAN Last Admin: 07/12/18 10:50 Dose: 125 mls/hr Sodium Chloride (Normal Saline) 1,000 mls @ 200 mls/hr IV ASDIRECTED AMAN Lorazepam (Ativan) 2 mg IVPUSH ONETIME ONE Stop: 07/12/18 12:51 Last Admin: 07/12/18 12:55 Dose: 2 mg Morphine Sulfate (Morphine) 4 mg IVPUSH ONETIME ONE Stop: 07/12/18 09:02 Last Admin: 07/12/18 09:15 Dose: 4 mg Morphine Sulfate (Morphine) 2 mg IVPUSH Q2H PRN PRN Reason: Pain (severe 7-10) Stop: 07/13/18 13:28 Morphine Sulfate (Morphine) 2 mg IVPUSH Q2H PRN PRN Reason: Pain (severe 7-10) Stop: 07/13/18 13:28 Last Admin: 07/13/18 03:45 Dose: 2 mg Ondansetron HCl (Zofran) 8 mg IVPUSH ONETIME ONE Stop: 07/12/18 08:29 Last Admin: 07/12/18 09:06 Dose: 8 mg Pantoprazole Sodium (Protonix Iv) 80 mg IVPUSH .BOLUS ONE Stop: 07/12/18 08:29 Last Admin: 07/12/18 09:09 Dose: 80 mg <Esequiel Morejon J - Last Filed: 07/16/18 19:22> - Patient Data Vitals - Most Recent: Last Vital Signs Temp 37.1 C 07/14/18 07:00 Pulse 71 07/14/18 03:00 Resp 18 07/14/18 07:00 BP 142/92 H 07/14/18 07:00 Pulse Ox 96 07/14/18 07:00 Med Orders - Current: Current Medications Discontinued Medications Ciprofloxacin/Dexamethasone (Ciprodex Otic Susp) 0 ml EARLF BID AMAN Stop: 07/19/18 18:01 Last Admin: 07/14/18 09:56 Dose: 4 drop Enoxaparin Sodium (Lovenox) 40 mg SUBCUT Q24H AMAN Last Admin: 07/13/18 13:21 Dose: 40 mg Hydromorphone HCl (Dilaudid) 1 mg IVPUSH ONETIME ONE Stop: 07/12/18 10:41 Last Admin: 07/12/18 10:52 Dose: Not Given Hydromorphone HCl (Dilaudid) Confirm Administered Dose 1 mg .ROUTE .STK-MED ONE Stop: 07/12/18 10:48 Last Admin: 07/12/18 10:58 Dose: Not Given Hydromorphone HCl (Dilaudid) 1 mg IVPUSH ONETIME ONE Stop: 07/12/18 10:52 Last Admin: 07/12/18 10:53 Dose: 1 mg Sodium Chloride (Normal Saline) 1,000 mls @ 999 mls/hr IV STAT ONE Stop: 07/12/18 09:28 Last Admin: 07/12/18 08:57 Dose: 999 mls/hr Sodium Chloride (Normal Saline) Confirm Administered Dose 20 mls @ as directed .ROUTE .STK-MED ONE Stop: 07/12/18 08:53 Last Admin: 07/12/18 16:43 Dose: Not Given Sodium Chloride (Normal Saline) 1,000 mls @ 125 mls/hr IV STAT AMAN Last Admin: 07/12/18 10:50 Dose: 125 mls/hr Sodium Chloride (Normal Saline) 1,000 mls @ 200 mls/hr IV ASDIRECTED AMAN Sodium Chloride (Normal Saline) 1,000 mls @ 200 mls/hr IV ASDIRECTED AMAN Last Admin: 07/14/18 05:26 Dose: 200 mls/hr Lorazepam (Ativan) 2 mg IVPUSH ONETIME ONE Stop: 07/12/18 12:51 Last Admin: 07/12/18 12:55 Dose: 2 mg Lorazepam (Ativan) 0 mg IVPUSH Q4H PRN; Protocol PRN Reason: Withdrawal Symptoms Last Admin: 07/12/18 22:43 Dose: 1 mg Morphine Sulfate (Morphine) 4 mg IVPUSH ONETIME ONE Stop: 07/12/18 09:02 Last Admin: 07/12/18 09:15 Dose: 4 mg Morphine Sulfate (Morphine) 2 mg IVPUSH Q2H PRN PRN Reason: Pain (severe 7-10) Stop: 07/13/18 13:28 Morphine Sulfate (Morphine) 2 mg IVPUSH Q2H PRN PRN Reason: Pain (severe 7-10) Stop: 07/13/18 13:28 Last Admin: 07/13/18 03:45 Dose: 2 mg Nicotine (Habitrol) 7 mg TRDERM DAILY AMAN Last Admin: 07/14/18 09:55 Dose: 7 mg Ondansetron HCl (Zofran) 8 mg IVPUSH ONETIME ONE Stop: 07/12/18 08:29 Last Admin: 07/12/18 09:06 Dose: 8 mg Ondansetron HCl (Zofran) 4 mg IVPUSH Q6H PRN PRN Reason: Nausea/Vomiting Oxycodone HCl (Oxycodone) 5 mg PO Q6H PRN PRN Reason: Pain Pantoprazole Sodium (Protonix Iv) 80 mg IVPUSH .BOLUS ONE Stop: 07/12/18 08:29 Last Admin: 07/12/18 09:09 Dose: 80 mg - Free Text/Narrative Note: I have examined the patient. I have discussed findings and treatment plan with the resident. I agree with the assessment and plan outlined in the following resident's note.
== END 2018-07-14 11:55 | disposition home or self-care (01) ==
LOC: MW.ED 08:22 → MW.MS 13:18
PROVIDERS: ADMIT Internal Medicine; ATTEND Internal Medicine
DX: K85.20 Alcohol induced acute pancreatitis without necrosis or infection (principal); F19.10 Other psychoactive substance abuse, uncomplicated; F17.210 Nicotine dependence, cigarettes, uncomplicated; Z98.890 Other specified postprocedural states
CPT/HCPCS: 36415; 80048; 80053; 80305; 81003; 83690; 84484; 85025; 93005; 96361; 96372; 96374; 96375; 96376; 99285; A9270; C9113; G0378; G0480; J1170; J1650; J2060; J2270; J2405; J7040; 99284